=== PATIENT | female | born 1990 | race Caucasian/White ===

== ENCOUNTER 2021-07-28 20:13 | Inpatient (IN) ==
[2021-07-28] MEDS ORDERED: Melatonin 3 MG TABLET PO PRN (23:05)
[2021-07-28] MEDS ORDERED: Naloxone 0.4 MG/ML INJ IVP PRN (23:05)
[2021-07-28] MEDS ORDERED: Ondansetron 4 MG/2 ML VIAL IVP PRN (23:05)
[2021-07-29] MEDS: 0.9 % Sodium Chloride 1,000 ML IVC SCH ×3 (00:01→17:56)
[2021-07-29] MEDS: Nicotine 21 MG PATCH.TD24 TD SCH ×2 (01:31→11:08)
[2021-07-29 01:35] LABS: Basophils % 0.3 %; Eosinophils # 0.1 K/mcL (0.0-0.6); Eosinophils % 0.9 %; Hematocrit 36.5 % (35.3-44.9); Hemoglobin 11.9 g/dL (11.5-15.4); Immature Granulocytes % 0.3 % (0-4); Lymphocytes # 1.9 K/mcL (0.6-4.6); Lymphocytes % 20.3 %; Mean Corpuscular HGB Conc 32.6 g/dL (31.6-35.5); Mean Corpuscular Hemoglobin 29.3 pg (28.0-33.3); Mean Corpuscular Volume 89.9 fL (83.0-100.0); Mean Platelet Volume 12.2 fL (9.4-12.4); Monocytes # 0.7 K/mcL (0.0-1.3); Monocytes % 7.5 %; Neutrophils # 6.7 K/mcL (1.6-8.9); Platelet Count 227 K/mcL (140-400); Red Blood Count 4.06 M/mcL (3.82-4.97); Red Cell Distribution Width 14.3 % (11.5-14.5); Segmented Neutrophils % 70.7 %; White Blood Count 9.5 K/mcL (4.3-11.1)
[2021-07-29 01:53] LABS: Alanine Aminotransferase 363 Units/L (7-52); Albumin 3.9 g/dL (3.5-5.7); Albumin/Globulin Ratio 1.6 (1.1-2.2); Alkaline Phosphatase 90 Units/L (34-104); Aspartate Amino Transferase 289 Units/L (13-39); BUN/Creatinine Ratio 29 (6-26); Bilirubin,Total 2.4 mg/dL (0.3-1.0); Blood Urea Nitrogen 15 mg/dL (6-20); Calcium 8.9 mg/dL (8.6-10.3); Carbon Dioxide 25 mEq/L (23-29); Chloride 109 mEq/L (98-107); Globulin 2.5 g/dL (2.4-3.5); Glucose 89 mg/dL (70-105); Magnesium 2.1 mg/dL (1.6-2.6); Osmolality,Calculated 290 (280-300); Phosphorous 3.9 mg/dL (2.7-4.5); Potassium 3.7 mEq/L (3.5-5.1); Sodium 140 mEq/L (136-145); Total Protein 6.4 g/dL (6.4-8.9); eGFR For African Americans > 60 (> 60); eGFR For Non-African Americans > 60 (> 60)
[2021-07-29 02:18] LABS: Prothrombin Time 11.4 Seconds (9.4-12.1)
[2021-07-29 02:20] LABS: Activated Partial Thrombo Time 27.6 Seconds (26.0-36.0)
[2021-07-29] MEDS ORDERED: *HR* HYDROmorphone PF 0.5 MG/0.5 ML SYRINGE IVP PRN (13:45)
[2021-07-29] MEDS ORDERED: Promethazine 6.25 MG in Water for inj. (sterile) 20 ML IVPB PRN (13:45)
[2021-07-29] MEDS ORDERED: Dexmedetomidine HCl 400 MCG/100 ML MLS IVC ONE (14:16)
[2021-07-29] MEDS ORDERED: *HR* FentaNYL (PF) 100 MCG/2 ML VIAL ONE (14:25)
[2021-07-29] MEDS ORDERED: Lidocaine -MPF 2% 2 ML VIAL ONE (14:25)
[2021-07-29] MEDS ORDERED: *HR* Propofol 200 MG/20 ML VIAL IVP ONE (14:25)
[2021-07-29] MEDS ORDERED: Lidocaine HCL 4 ML Topical Solution (Laryng-O-Jet Kit Sterile Pak) TP ONE (14:27)
[2021-07-29] MEDS ORDERED: Ondansetron 4 MG/2 ML VIAL ONE (14:46)
[2021-07-29] MEDS ORDERED: Indomethacin 50 MG SUPP.RECT RC ONE (15:10)
[2021-07-29] MEDS: Piperacillin/Tazobactam 3.375 GM in 0.9 % Sodium Chloride Mini Bag 100 ML IVPB SCH (17:43)
[2021-07-29] MEDS ORDERED: cefTRIAXone 1,000 MG in 0.9 % Sodium Chloride 10 ML IVP ONE (20:00)
[2021-07-30] MEDS: 0.9 % Sodium Chloride 1,000 ML IVC SCH ×3 (00:49→15:47)
[2021-07-30] MEDS: Piperacillin/Tazobactam 3.375 GM in 0.9 % Sodium Chloride Mini Bag 100 ML IVPB SCH ×2 (00:49→09:18)
[2021-07-30 05:24] LABS: Basophils % 0.1 %; Eosinophils % 0.2 %; Hematocrit 34.7 % (35.3-44.9); Hemoglobin 11.3 g/dL (11.5-15.4); Immature Granulocytes % 0.7 % (0-4); Lymphocytes # 1.2 K/mcL (0.6-4.6); Lymphocytes % 11.6 %; Mean Corpuscular HGB Conc 32.6 g/dL (31.6-35.5); Mean Corpuscular Hemoglobin 29.3 pg (28.0-33.3); Mean Corpuscular Volume 89.9 fL (83.0-100.0); Mean Platelet Volume 12.8 fL (9.4-12.4); Monocytes # 0.6 K/mcL (0.0-1.3); Monocytes % 6.1 %; Neutrophils # 8.2 K/mcL (1.6-8.9); Platelet Count 211 K/mcL (140-400); Red Blood Count 3.86 M/mcL (3.82-4.97); Red Cell Distribution Width 13.8 % (11.5-14.5); Segmented Neutrophils % 81.3 %; White Blood Count 10.1 K/mcL (4.3-11.1)
[2021-07-30 05:54] LABS: BUN/Creatinine Ratio 24 (6-26); Blood Urea Nitrogen 11 mg/dL (6-20); Calcium 8.7 mg/dL (8.6-10.3); Carbon Dioxide 21 mEq/L (23-29); Chloride 108 mEq/L (98-107); Glucose 102 mg/dL (70-105); Osmolality,Calculated 284 (280-300); Sodium 137 mEq/L (136-145); eGFR For African Americans > 60 (> 60); eGFR For Non-African Americans > 60 (> 60)
[2021-07-30 05:55] LABS: Alanine Aminotransferase 248 Units/L (7-52); Albumin 3.7 g/dL (3.5-5.7); Albumin/Globulin Ratio 1.5 (1.1-2.2); Alkaline Phosphatase 120 Units/L (34-104); Aspartate Amino Transferase 121 Units/L (13-39); Bilirubin,Direct 2.5 mg/dL (0.0-0.2); Globulin 2.4 g/dL (2.4-3.5); Total Protein 6.1 g/dL (6.4-8.9)
[2021-07-30 07:22] LABS: Bilirubin,Indirect 0.9 mg/dL (0.0-1.0); Bilirubin,Total 3.4 mg/dL (0.3-1.0)
[2021-07-30] MEDS ORDERED: Albuterol 2.5 MG/3 ML NEBULIZER IH PRN (10:52)
[2021-07-30] MEDS ORDERED: Ondansetron 4 MG/2 ML VIAL IVP PRN ×2 (10:52→15:45)
[2021-07-30] MEDS ORDERED: *HR* FentaNYL (PF) 100 MCG/2 ML VIAL ONE (10:58)
[2021-07-30] MEDS ORDERED: *HR* Rocuronium Bromide 50 MG/5 ML VIAL ONE (10:58)
[2021-07-30] MEDS ORDERED: Ondansetron 4 MG/2 ML VIAL ONE (10:58)
[2021-07-30] MEDS ORDERED: Lidocaine -MPF 2% 2 ML VIAL ONE (10:58)
[2021-07-30] MEDS ORDERED: Dexmedetomidine HCl 400 MCG/100 ML MLS IVC ONE (11:05)
[2021-07-30] MEDS ORDERED: *HR* Midazolam HCl 2 MG/2 ML VIAL ONE (11:14)
[2021-07-30] MEDS ORDERED: Ketamine HCL *QUVA* 50mg (1mL) SYRINGE ONE (11:53)
[2021-07-30] MEDS ORDERED: Bupivacaine-MPF 0.25% 10 ML VIAL ONE (12:12)
[2021-07-30] MEDS ORDERED: Lidocaine/EPI 1:100k 1% 50 ML VIAL ONE (12:12)
[2021-07-30] MEDS ORDERED: Acetaminophen IV 1,000 MG/100 ML BAG IVPB ONE (12:14)
[2021-07-30] MEDS ORDERED: Sugammadex Sodium 200 MG/2 ML VIAL IV ONE (12:46)
[2021-07-30] MEDS ORDERED: Ketorolac 30 MG/ML VIAL ONE (12:54)
[2021-07-30] MEDS ORDERED: Acetaminophen 325 MG TABLET PO PRN ×2 (13:13→15:45)
[2021-07-30] MEDS ORDERED: Ibuprofen 800 MG TABLET PO PRN ×2 (13:14→15:45)
[2021-07-30] MEDS ORDERED: *HR* OxyCODONE Immed Rel 5 MG TABLET PO PRN ×4 (13:14→15:17)
[2021-07-30] MEDS ORDERED: Morphine Sulfate 2 MG/ML SYRINGE IVP PRN (13:15)
[2021-07-30] MEDS: *HR* HYDROmorphone PF 0.5 MG/0.5 ML SYRINGE IVP PRN ×3 (13:22→13:52)
[2021-07-30] MEDS ORDERED: Ringers Solution, Lactated 1,000 ML ONE (13:56)
[2021-07-30] MEDS ORDERED: cefTRIAXone 1,000 MG in 0.9 % Sodium Chloride Mini Bag 100 ML IVPB SCH (15:00)
[2021-07-30] MEDS ORDERED: *HR* HYDROmorphone (PF) 1 MG/ML SYRINGE IVP PRN (15:17)
[2021-07-30] MEDS ORDERED: Melatonin 3 MG TABLET PO PRN (15:45)
[2021-07-30] MEDS: *HR* OxyCODONE Immed Rel 5 MG TABLET PO PRN ×2 (16:38→23:12)
[2021-07-30] MEDS: Nicotine 21 MG PATCH.TD24 TD SCH (22:58)
[2021-07-31] MEDS: *HR* OxyCODONE Immed Rel 5 MG TABLET PO PRN ×2 (03:43→07:48)
[2021-07-31 07:18] VITALS: BP 124/79; PULSE 62; TEMP 98; O2SAT 97
[2021-07-31] MEDS: Nicotine 21 MG PATCH.TD24 TD SCH (07:49)
[2021-07-31] MEDS ORDERED: Nicotine 21 MG PATCH.TD24 TD SCH (09:00)
== END 2021-07-31 12:15 | disposition home or self-care (01) | DRG 263 ==
LOC: 3BNU → SUATTDRO 22:32
PROVIDERS: ADMIT Family Medicine; ATTEND Registered Nurse